=== PATIENT | female | born 1990 | race Caucasian/White ===

== ENCOUNTER 2023-10-10 00:26 | Emergency (ER) | payer MEDICARE, MEDICAID, SELFPAY ==
[2023-10-10 00:37] VITALS: BP 184/80; PULSE 109; RESP 18; TEMP 36.8; O2SAT 99; BMI 56.2
--- NOTE | 2023-10-10 00:44 | ED_ITS ---
HPI - Female Genitourinary General: Chief complaint: Urogenital-Female Stated complaint: bladder pain Time Seen by Provider: 10/10/23 00:34 Source: patient Mode of arrival: ambulatory Limitations: no limitations History of Present Illness: 33-year-old female states she has had a history of chronic abdominal pain along with UTIs in the past states she been having severe pain over her bladder tonight along with dysuria she states that pain is much worse when she tries to urinate she denies any vomiting denies any diarrhea she is afebrile. Associated symptoms: Reports abdominal pain; Deny headache(s) or nausea Review of Systems Const: Denies: fever(s), chills, body aches or change in appetite Eyes: Denies: blurry vision or eye discomfort ENMT: Denies: throat pain or dental pain Card: Denies: chest pain Resp: Denies: dyspnea GI: Reports: abdominal pain; Denies: nausea, vomiting or diarrhea : Reports: dysuria Musc: Denies: neck pain or back pain Skin/Breast: Denies: rash Neuro: Denies: headache(s) Physical Exam Const: COMMON NORMALS: no acute distress, patient oriented x3 and healthy appearing HENMT: COMMON NORMALS: normocephalic and atraumatic HEAD & SCALP: normocephalic and atraumatic Neck/C-Spine: COMMON NORMALS: full ROM and supple Chest: COMMONS NORMALS: normal inspection of the chest and normal palpation of entire chest wall Resp: COMMON NORMALS: normal respiratory effort, No retractions, No use of accessory muscles and clear to auscultation bilaterally AUSCULTATION: clear to auscultation bilaterally Cardio: COMMON NORMALS: regular rate, regular rhythm and No murmurs present (Cardio) RATE: regular rate RHYTHM: regular rhythm GI: COMMON NORMALS: Normal to inspection, nondistended, normoactive bowel sounds present, Soft to palpation, non-tender and no masses PALPATION: Yes Soft to palpation Extremity: COMMON NORMALS: normal to inspection and full ROM Neuro: COMMON NORMALS: patient oriented x3, moves all extremities and no focal motor deficits Psych: COMMON NORMALS: mental status grossly normal, Normal thought process present and cooperative THOUGHT PROCESS: Normal thought process present Skin: COMMON NORMALS: no rashes or lesions noted and no wounds GENERAL SKIN EXAM: no rashes or lesions noted Course Vital Signs: Vital signs: Vital Signs Temperature 98.3 F 10/10/23 00:37 Pulse Rate 79 10/10/23 00:45 Respiratory Rate 18 10/10/23 01:04 Blood Pressure 184/80 10/10/23 00:45 Pulse Oximetry 99 10/10/23 01:04 Oxygen Delivery Me thod Room Air 10/10/23 00:45 MDM - Female Medical Decision Making Patient presents with abdominal pain pain has improved here exam at discharge benign blood work along with urine here is normal no UTI she has no signs of acute surgical abdomen she is stable for discharge she is to follow-up with PCP and return if worsening. Medical Records I reviewed the patient's medical records. Lab Data I reviewed the patient's lab results. 10/10/23 00:42 10/10/23 00:42 Laboratory Results WBC 10.98 10^3/uL (3.29-11.43) 10/10/23 00:42 RBC 4.14 10^6/uL (3.85-5.65) 10/10/23 00:42 Hgb 12.20 g/dL (11.27-16.99) 10/10/23 00:42 Hct 37.8 % (36-47) 10/10/23 00:42 MCV 91.3 fl (85-98) 10/10/23 00:42 MCH 29.5 pg (27-33) 10/10/23 00:42 MCHC 32.3 g/dL (30-55) 10/10/23 00:42 RDW 12.3 % (12.1-15.1) 10/10/23 00:42 Plt Count 301 10^3/cmm (157-399) 10/10/23 00:42 MPV 10.1 fL (7.4-10.4) 10/10/23 00:42 Neut % (Auto) 59.2 % 10/10/23 00:42 Lymph % (Auto) 31.6 % 10/10/23 00:42 [place] % (Auto) 5.6 % 10/10/23 00:42 Eos % (Auto) 1.4 % 10/10/23 00:42 Baso % (Auto) 0.7 % 10/10/23 00:42 Neut # (Auto) 6.50 10^3/uL (1.8-7.7) 10/10/23 00:42 Lymph # (Auto) 3.5 10^3/uL (0.8-4.8) 10/10/23 00:42 [place] # (Auto) 0.6 10^3/uL (0.2-0.9) 10/10/23 00:42 Eos # (Auto) 0.2 10^3/uL (0.0-0.8) 10/10/23 00:42 Baso # (Auto) 0.1 10^3/uL (0.0-0.1) 10/10/23 00:42 Nucleated RBC % (auto) 0 % 10/10/23 00:42 Nucleated RBCs # 0.0 /100WBC 10/10/23 00:42 Sodium 136 mmol/L (136-145) 10/10/23 00:42 Potassium 4.4 mmol/L (3.5-5.1) 10/10/23 00:42 Chloride 101 mmol/L (98-107) 10/10/23 00:42 Carbon Dioxide 22 mmol/L (22-29) 10/10/23 00:42 Anion Gap 17.4 (5-19) 10/10/23 00:42 BUN 9 mg/dL (6-20) 10/10/23 00:42 Creatinine 0.7 mg/dL (0.5-0.9) 10/10/23 00:42 GFR Calculation 97.0 mL/min (90-130) 10/10/23 00:42 Glucose 119 mg/dL (65-115) H 10/10/23 00:42 Calculated Osmolality 282 mOsm/kg (285-295) L 10/10/23 00:42 Calcium 9.4 mg/dL (8.5-10.5) 10/10/23 00:42 Total Bilirubin 0.2 mg/dL (0.15-1.2) 10/10/23 00:42 AST 28 U/L (0-32) 10/10/23 00:42 ALT 24 U/L (0-33) 10/10/23 00:42 Alkaline Phosphatase 69 U/L (35-105) 10/10/23 00:42 Total Protein 7.2 g/dL (6.6-8.7) 10/10/23 00:42 Albumin 4.3 g/dL (3.5-5.2) 10/10/23 00:42 Globulin 2.9 g/dL (1.3-4.6) 10/10/23 00:42 Lipase 47 U/L (13-60) 10/10/23 00:42 HCG, Qual Negative (Negative) 10/10/23 01:16 Urine Color Yellow (Yellow) 10/10/23 01:16 Urine Appearance Clear (CLEAR) 10/10/23 01:16 Urine pH 5 (5-7) 10/10/23 01:16 Ur Specific [place] 1.020 (1.005-1.030) 10/10/23 01:16 Urine Protein Neg (Negative) 10/10/23 01:16 Urine Glucose (UA) Norm (Normal) 10/10/23 01:16 Urine Ketones Negative (Negative) 10/10/23 01:16 Urine Blood Trace (Negative) H 10/10/23 01:16 Urine Nitrate Negative (Negative) 10/10/23 01:16 Urine Bilirubin Neg (Negative) 10/10/23 01:16 Urine Urobilinogen Neg mg/dL (Negative) 10/10/23 01:16 Ur Leukocyte Esterase Trace (Negative) H 10/10/23 01:16 Urine RBC 0-4 /hpf (0-2) H 10/10/23 01:16 Urine WBC 0-4 /hpf (0-5) H 10/10/23 01:16 Ur Squamous Epith Cells 5-10 /hpf (0-5) H 10/10/23 01:16 Amorphous Sediment Not Reportable 10/10/23 01:16 Urine Bacteria Trace /hpf (NONE) 10/10/23 01:16 No radiology studies performed this visit Discharge Plan Discharge Patient Disposition: Home Clinical Impression: Abdominal pain, Dysuria Condition: Stable Prescriptions: No Action Flonase 50 mcg/actuation [place],Suspension INTRANASAL PRN (Reason: Allergy Symptoms) Discharge Orders: Discharge ED (Routine); Ordered 10/10/23 Ordered By: Florencio Umana Referrals: John Sim MD [Primary Care Provider] - 1-3 days Discharge Diet: Advance as tolerated Discharge Activity: Resume usual activity Patient Instructions: Abdominal Pain (ED) Coding Level of Care Code ED Account Development Associate for [facility]
[2023-10-10 00:45] VITALS: BP 184/80; PULSE 79; RESP 18; O2SAT 100
[2023-10-10 00:52] LABS: Basophils # 0.1 10^3/uL (0.0-0.1); Basophils % 0.7 %; Eosinophils # 0.2 10^3/uL (0.0-0.8); Eosinophils % 1.4 %; Hematocrit 37.8 % (36-47); Lymphocytes # 3.5 10^3/uL (0.8-4.8); Lymphocytes % 31.6 %; Mean Corpuscular HGB Conc 32.3 g/dL (30-55); Mean Corpuscular Hemoglobin 29.5 pg (27-33); Mean Corpuscular Volume 91.3 fl (85-98); Mean Platelet Volume 10.1 fL (7.4-10.4); Monocytes # 0.6 10^3/uL (0.2-0.9); Monocytes % 5.6 %; Neutrophils % 59.2 %; Nucleated Red Blood Cells % 0 %; Platelet Count 301 10^3/cmm (157-399); Red Blood Count 4.14 10^6/uL (3.85-5.65); Red Cell Distribution Width 12.3 % (12.1-15.1); White Blood Count 10.98 10^3/uL (3.29-11.43)
[2023-10-10] MEDS: ondansetron 2 mg/ML SDV 2 mL 4 MG IVP (01:02)
[2023-10-10 01:04] VITALS: RESP 18; O2SAT 99
[2023-10-10] MEDS: morphine 4 mg/mL SDV 1 mL IVP (01:04)
[2023-10-10 01:24] LABS: Alanine Aminotransferase 24 U/L (0-33); Albumin Level 4.3 g/dL (3.5-5.2); Alkaline Phosphatase 69 U/L (35-105); Blood Urea Nitrogen 9 mg/dL (6-20); Calcium 9.4 mg/dL (8.5-10.5); Carbon Dioxide 22 mmol/L (22-29); Chloride 101 mmol/L (98-107); Globulin 2.9 g/dL (1.3-4.6); Glucose 119 mg/dL (65-115); Lipase 47 U/L (13-60); Osmolality Calculated 282 mOsm/kg (285-295); Sodium 136 mmol/L (136-145); Total Bilirubin 0.2 mg/dL (0.15-1.2); Total Protein 7.2 g/dL (6.6-8.7)
[2023-10-10 01:25] LABS: Anion Gap 17.4 (5-19); Aspartate Amino Transferase 28 U/L (0-32); Potassium 4.4 mmol/L (3.5-5.1)
[2023-10-10 01:42] LABS: HCG Qualitative Urine. Negative (Negative)
[2023-10-10 01:46] LABS: Add Urine Culture? No; Add Urine Microscopic? YES; Bacteria Urine TRACE /hpf; Bilirubin Urine Neg (Negative); Blood Urine Trace (Negative); Glucose Urine UA Norm (Normal); Ketones Urine Negative (Negative); Leukocyte Esterase Urine Trace (Negative); Nitrate Urine Negative (Negative); Protein Urine Neg (Negative); RBC Urine 0-4 /hpf (0-2); Urine Appearance Clear (CLEAR); Urine Color Yellow (Yellow); Urobilinogen Urine Neg (Negative); WBC Urine 0-4 /hpf (0-5); pH Urine 5 (5-7)
[2023-10-10 02:41] VITALS: BP 130/76; PULSE 68; RESP 16; O2SAT 97
== END 2023-10-10 02:42 | disposition home or self-care (01) ==
PROVIDERS: Emergency Provider Emergency Medicine; PCP Family Medicine
DX: R10.9 Unspecified abdominal pain (principal); R30.0 Dysuria
CPT/HCPCS: 80053; 81001; 81025; 83690; 85025; 96374; 96375; 99284; J2270; J2405